=== PATIENT | male | born 1965 | race Caucasian/White ===

== ENCOUNTER 2017-05-04 11:55 | Emergency (ER) | payer OTHER ==
[~2017-05-04] VITALS: Ht 175.3 cm; Wt 78.7 kg
[~2017-05-04 11:55] MED LIST: ACID REDUCER10 MG PO; ADVIL MIGRAINE200 MG PO; ALEVE220 MG PO; DEXAMETHASONE0.5 MG PO; FLEXERIL10 MG PO; IMITREX50 MG PO; INDERAL LA80 MG PO; LYRICA150 MG PO; OXYCODONE HCL10 MG PO; OXYCODONE HCL5 MG PO; OXYCODONE-ACET1 EACH PO; WELLBUTRIN XL150 MG PO; WELLBUTRIN XL300 MG PO; ZOFRAN ODT8 MG PO
[2017-05-04 14:55] VITALS: BP 120/82
== END 2017-05-04 15:01 | disposition home or self-care (01) ==
LOC: EME 11:55
DX: M25.551 Pain in right hip (principal); G89.29 Other chronic pain; K21.9 Gastro-esophageal reflux disease without esophagitis; F17.200 Nicotine dependence, unspecified, uncomplicated; Z88.5 Allergy status to narcotic agent
CPT/HCPCS: 73502; 99281; 99284